=== PATIENT | female | born 1970 | race Caucasian/White ===

== ENCOUNTER 2022-01-22 08:50 | Observation (INO) ==
[2022-01-22] MEDS ORDERED: Aspirin 81 MG TAB.CHEW PO ONE (09:06)
[2022-01-22] MEDS ORDERED: Nitroglycerin 1 INCH/GM PACKET TP ONE (09:08)
[2022-01-22 09:24] LABS: Basophils % 0.4 %; Eosinophils # 0.1 K/mcL (0.0-0.6); Eosinophils % 1.3 %; Hematocrit 36.5 % (35.3-44.9); Hemoglobin 11.4 g/dL (11.5-15.4); Immature Granulocytes % 0.4 % (0-4); Lymphocytes # 1.9 K/mcL (0.6-4.6); Lymphocytes % 36.1 %; Mean Corpuscular HGB Conc 31.2 g/dL (31.6-35.5); Mean Corpuscular Hemoglobin 29.2 pg (28.0-33.3); Mean Corpuscular Volume 93.6 fL (83.0-100.0); Mean Platelet Volume 10.5 fL (9.4-12.4); Monocytes # 0.5 K/mcL (0.0-1.3); Monocytes % 8.8 %; Neutrophils # 2.8 K/mcL (1.6-8.9); Platelet Count 220 K/mcL (140-400); Red Cell Distribution Width 13.3 % (11.5-14.5); White Blood Count 5.2 K/mcL (4.3-11.1)
[2022-01-22 09:35] LABS: Prothrombin Time 11.4 Seconds (9.4-12.1)
[2022-01-22 09:37] LABS: Activated Partial Thrombo Time 31.7 Seconds (26.0-36.0)
[2022-01-22 09:43] LABS: BUN/Creatinine Ratio 13 (6-26); Blood Urea Nitrogen 10 mg/dL (6-20); Calcium 8.8 mg/dL (8.6-10.3); Carbon Dioxide 29 mEq/L (23-29); Chloride 108 mEq/L (98-107); Glucose 84 mg/dL (70-105); Osmolality,Calculated 288 (280-300); Potassium 3.9 mEq/L (3.5-5.1); Sodium 140 mEq/L (136-145); eGFR For African Americans > 60 (> 60); eGFR For Non-African Americans > 60 (> 60)
[2022-01-22 09:46] LABS: Troponin I < 0.03 ng/mL (< 0.04)
[2022-01-22] MEDS ORDERED: Ondansetron 4 MG/2 ML VIAL IVP PRN (11:12)
[2022-01-22] MEDS ORDERED: Naloxone 0.4 MG/ML INJ IVP PRN ×2 (11:12→11:16)
[2022-01-22] MEDS ORDERED: Nitroglycerin 0.4 MG TAB.SUBL SL PRN (11:19)
[2022-01-22] MEDS: Acetaminophen 325 MG TABLET PO PRN ×2 (12:51→21:06)
[2022-01-23 02:57] VITALS: TEMP 97.7
[2022-01-23] MEDS ORDERED: *HR* Enoxaparin 40 MG/0.4 ML SYRINGE SQ SCH (06:00)
[2022-01-23 06:57] LABS: Hematocrit 36.2 % (35.3-44.9); Hemoglobin 11.5 g/dL (11.5-15.4); Mean Corpuscular HGB Conc 31.8 g/dL (31.6-35.5); Mean Corpuscular Hemoglobin 29.6 pg (28.0-33.3); Mean Corpuscular Volume 93.1 fL (83.0-100.0); Mean Platelet Volume 10.9 fL (9.4-12.4); Platelet Count 226 K/mcL (140-400); Red Blood Count 3.89 M/mcL (3.82-4.97); Red Cell Distribution Width 13.2 % (11.5-14.5); White Blood Count 6.3 K/mcL (4.3-11.1)
[2022-01-23 07:13] LABS: BUN/Creatinine Ratio 13 (6-26); Blood Urea Nitrogen 10 mg/dL (6-20); Calcium 8.7 mg/dL (8.6-10.3); Carbon Dioxide 29 mEq/L (23-29); Chloride 108 mEq/L (98-107); Chol/HDL Ratio 3.1 (0-4.9); Cholesterol 154 mg/dL (< 200); Glucose 84 mg/dL (70-105); HDL Cholesterol 49 mg/dL (40-59); LDL Cholesterol,Calculated 90 mg/dL (< 100); Osmolality,Calculated 290 (280-300); Potassium 3.7 mEq/L (3.5-5.1); Sodium 141 mEq/L (136-145); Triglycerides 75 mg/dL (< 150); eGFR For African Americans > 60 (> 60); eGFR For Non-African Americans > 60 (> 60)
[2022-01-23 07:23] VITALS: BP 115/72; PULSE 55; RESP 16; O2SAT 98
[2022-01-23] MEDS ORDERED: Aspirin Enteric Coated 81 MG Tablet PO SCH ×2 (09:00→09:45)
== END 2022-01-23 11:34 | disposition home or self-care (01) ==
LOC: EMEROOPIK 08:50 → INPPIK 08:50
PROVIDERS: ADMIT Family Medicine; ATTEND Family Medicine